=== PATIENT | female | born 1945 | race Two or more races ===

== ENCOUNTER 2018-12-25 16:49 | Emergency (ER) | payer OTHER ==
[~2018-12-25] VITALS: Ht 165.1 cm; Wt 133.4 kg
[~2018-12-25 16:49] MED LIST: AVALIDE 300-12.1 TAB; CARDURA XL4 MG/BOTTL; PAXIL20 MG; TENORMIN100 MG; XANAX0.25 MG
[2018-12-25] MEDS ORDERED: HYDRALAZINE HCL50 MG PO (17:06)
== END 2018-12-25 18:15 | disposition home or self-care (01) ==
LOC: ER 16:49
DX: I16.0 Hypertensive urgency (principal); I10 Essential (primary) hypertension

== ENCOUNTER → 2021-12-17 | Emergency (ER) | payer OTHER ==
[~2021-12-17] VITALS: Ht 165.1 cm; Wt 90.7 kg
[~2021-12-17] MED LIST changes: +HYDRALAZINE HCL50 MG PO
== END | disposition home or self-care (01) ==
LOC: ER 16:12 → EDBD 16:21
DX: S63.502A Unspecified sprain of left wrist, initial encounter (principal); W18.30XA Fall on same level, unspecified, initial encounter; Y93.9 Activity, unspecified; Y92.9 Unspecified place or not applicable; Y99.9 Unspecified external cause status

== ENCOUNTER 2022-05-09 16:22 | Emergency (ER) | payer OTHER ==
[~2022-05-09] VITALS: Ht 162.6 cm; Wt 90.7 kg
[2022-05-09] MEDS ORDERED: XARELTO2.5 MG (16:59)
== END 2022-05-09 20:19 | disposition home or self-care (01) ==
LOC: ER 16:22
DX: F41.8 Other specified anxiety disorders (principal); Z79.01 Long term (current) use of anticoagulants; I11.9 Hypertensive heart disease without heart failure; E78.00 Pure hypercholesterolemia, unspecified

== ENCOUNTER → 2025-09-23 | Emergency (ER) | payer OTHER ==
[~2025-09-23] VITALS: Ht 165.1 cm; Wt 84.4 kg
[~2025-09-23] MED LIST changes: +XARELTO2.5 MG
[2025-09-24 00:10] VITALS: BP 133/85; O2SAT 99
== END | disposition left against medical advice (07) ==
LOC: ER 23:46 → EDBD 23:52
DX: Z53.21 Procedure and treatment not carried out due to patient leaving prior to being seen by health care provider (principal)

== ENCOUNTER 2025-10-03 11:02 | Emergency (ER) | payer OTHER ==
[~2025-10-03] VITALS: Ht 162.6 cm; Wt 81.6 kg
[2025-10-03 14:15] LABS: BASO % 0.5 % (0.1-1.2); EOS # 0.15 (0.04-0.54); EOS % 0.8 % (0.7-7.0); LYMPH # 12.72 (1.18-3.74); LYMPH % 66.2 % (19.3-53.1); MEAN PLATELET VOLUME 9.50 fl (9.4-12.4); MONO # 1.80 (0.24-0.82); MONO % 9.4 % (4.7-12.5); NEUT # 4.41 (1.56-6.13); NEUT % 22.8 % (34.0-71.1); RED CELL DISTRIBUTION WIDTH 14.8 % (11.6-14.4)
[2025-10-03 14:21] LABS: ERYTHROCYTE SEDIMENTATION RATE 30 mm/hr (0-30)
[2025-10-03 14:53] LABS: COVID-19 AG NEGATIVE (NEGATIVE)
[2025-10-03 14:54] LABS: ALT/SGPT 21.0 U/L (12-78); AST/SGOT 23.0 U/L (15-37); BILIRUBIN TOTAL 0.65 mg/dL (0.3-1.2); BUN CREA RATIO 24.0 (7.0-25.0); CREATININE SERUM 0.9 mg/dL (0.55-1.02); GFR 59.94; GLOBULINA 3.4 G/DL (2.4-3.5); GLUCOSE FASTING 105.0 mg/dL (65-100); INR 1.05; OSMOLALITY SERUM 285.0 MOSM/KG (275-295)
[2025-10-03] MEDS ORDERED: CEFTRIAXONE SODIUM 1,000 MG VIAL IM STA (16:59)
[2025-10-03] MEDS ORDERED: DIPHENHYDRAMINE HCL 50 MG/ML VIAL 1ML IM STA (17:00)
[2025-10-03] MEDS ORDERED: CEFTRIAXONE SODIUM 1,000 MG VIAL ONE (17:20)
[2025-10-03] MEDS ORDERED: DIPHENHYDRAMINE HCL 50 MG/ML VIAL 1ML ONE (17:20)
[2025-10-03] MEDS ORDERED: MELATONIN10 MG PO (17:49)
[2025-10-03] MEDS ORDERED: AMOX-CLAV 875-1 EACH PO (17:49)
== END 2025-10-03 18:41 | disposition home or self-care (01) ==
LOC: ER 11:03
PROVIDERS: Physician Assistant Medical
DX: J02.8 Acute pharyngitis due to other specified organisms (principal); K21.9 Gastro-esophageal reflux disease without esophagitis; D72.829 Elevated white blood cell count, unspecified; Z20.822 Contact with and (suspected) exposure to COVID-19; I10 Essential (primary) hypertension; Z87.09 Personal history of other diseases of the respiratory system
CPT/HCPCS: 36415; 96372; 99282; J0696; J1200